=== PATIENT | female | born 2000 | race American Indian/Alaskan Native ===

== ENCOUNTER 2020-05-03 13:11 | Emergency (ER) | payer SELFPAY ==
[2020-05-03 13:25] VITALS: BP 131/89
--- NOTE | 2020-05-03 14:19 | Emergency Department Report ---
ED General Adult HPI - General Chief complaint: Back Pain/Injury Stated complaint: LOWER BACK PAIN/SWOLLEN TONSILS Time Seen by Provider: 05/03/20 13:27 Source: patient Mode of arrival: Wheelchair Limitations: No Limitations - History of Present Illness Initial comments: 19-year-old -[place] female patient presents with complaints of lower back pain intermittently since December of this year. She denies any injuries to her back and rates her pain as a 8/10 in severity. Patient states she was seen at an urgent care 1 week ago for the pain and was prescribed muscle relaxers which initially helped with the pain and then the pain began to worsen again. She denies any loss of bladder/bowel control, numbness/tingling/weakness in her limbs, or difficulty with ambulation/movement of her legs. She denies currently taking any anti-inflammatories for pain. She also denies any history of cancer or urinary symptoms.. Severity scale (0 -10): 10 - Related Data Previous Rx's Medication Instructions Recorded Last Taken Type Docusate Sodium [Colace CAP] 100 mg PO BID PRN #60 capsule 11/02/19 Unknown Rx Naproxen 500 mg PO Q12H PRN #30 tablet 02/26/20 Unknown Rx Ondansetron [Zofran ODT TAB] 4 mg PO Q6HR PRN #15 tab.rapdis 02/26/20 Unknown Rx traMADoL [Ultram] 50 mg PO Q6HR PRN #12 tablet 02/26/20 Unknown Rx Diclofenac Sodium 75 mg PO BID PRN #14 tablet. 05/03/20 Unknown Rx methOCARBAMOL [Robaxin TAB] 1,500 mg PO Q8H PRN #30 tablet 05/03/20 Unknown Rx Allergies Allergy/AdvReac Type Severity Reaction Status Date / Time No Known Allergies Allergy Verified 11/01/19 22:14 ED Review of Systems ROS: Stated complaint: LOWER BACK PAIN/SWOLLEN TONSILS Other details as noted in HPI Constitutional: denies: chills, fever, malaise Respiratory: denies: shortness of breath Cardiovascular: denies: chest pain Gastrointestinal: denies: abdominal pain, nausea, vomiting Genitourinary: denies: dysuria, frequency, hematuria Musculoskeletal: back pain Neurological: denies: numbness, paresthesias Hematological/Lymphatic: denies: swollen glands ED Past Medical Hx - Past Medical History Previous Medical History?: Yes Hx Asthma: Yes - Surgical History Past Surgical History?: No - Social History Smoking Status: Never Smoker Substance Use Type: None - Medications Home Medications: Home Medications Medication Instructions Recorded Confirmed Last Taken Type Docusate Sodium [Colace CAP] 100 mg PO BID PRN #60 capsule 11/02/19 Unknown Rx Naproxen 500 mg PO Q12H PRN #30 tablet 02/26/20 Unknown Rx Ondansetron [Zofran ODT TAB] 4 mg PO Q6HR PRN #15 tab.rapdis 02/26/20 Unknown Rx traMADoL [Ultram] 50 mg PO Q6HR PRN #12 tablet 02/26/20 Unknown Rx Diclofenac Sodium 75 mg PO BID PRN #14 tablet.dr 05/03/20 Unknown Rx methOCARBAMOL [Robaxin TAB] 1,500 mg PO Q8H PRN #30 tablet 05/03/20 Unknown Rx ED Physical Exam - General Limitations: No Limitations General appearance: alert, in no apparent distress, obese - Head Head exam: Present: atraumatic, normocephalic - Eye Eye exam: Absent: scleral icterus - Respiratory Respiratory exam: Absent: respiratory distress - Cardiovascular Cardiovascular Exam: Present: regular rate - GI/Abdominal GI/Abdominal exam: Present: soft. Absent: tenderness - Extremities Exam Extremities exam: Present: normal inspection, full ROM - Back Exam Back exam: Present: paraspinal tenderness (Mild lumbar), vertebral tenderness (Mild lumbar). Absent: full ROM, other (No obvious deformity no) - Neurological Exam Neurological exam: Present: alert, oriented X3 - Psychiatric Psychiatric exam: Present: normal affect, normal mood - Skin Skin exam: Present: warm, dry, intact, normal color. Absent: rash, cyanosis, diaphoretic ED Course Vital Signs 05/03/20 13:22 Temperature 98.2 F Pulse Rate 109 H Respiratory 18 Rate Blood Pressure 131/89 [Right] O2 Sat by Pulse 98 Oximetry ED Medical Decision Making - Radiology Data Radiology results: report reviewed LUMBAR SPINE 3 VIEWS INDICATION: low back pain, no injury COMPARISON: None. FINDINGS: No acute, displaced fracture is seen. Alignment is within normal limits. Disc space height is maintained. No significant degenerative changes. CONCLUSION: 1. No acute findings. - Medical Decision Making 19-year-old -[place] female patient presents with complaints of lower back pain intermittently since December of this year. She denies any injuries to her back and rates her pain as a 8/10 in severity. Patient states she was seen at an urgent care 1 week ago for the pain and was prescribed muscle relaxers which initially helped with the pain and then the pain began to worsen again. She denies any loss of bladder/bowel control, numbness/tingling/weakness in her limbs, or difficulty with ambulation/movement of her legs. She denies currently taking any anti-inflammatories for pain. She also denies any history of cancer or urinary symptoms. No acute abnormalities are noted on x-ray of the lumbar spine. She is neurologically intact on exam. Patient is well-appearing and stable for discharge home. Recommend follow-up with the orthopedic/social services specialist for further evaluation and treatment given chronicity. Strict return precautions were discussed in detail with patient who verbalizes understanding. Critical care attestation.: If time is entered above; I have spent that time in minutes in the direct care of this critically ill patient, excluding procedure time. ED Disposition Clinical Impression: Lumbar back pain Disposition: DC-01 TO HOME OR SELFCARE Is pt being admited?: No Condition: Stable Instructions: What You Need to Know About Chronic Back Pain, Acute Back Pain, Adult Prescriptions: Diclofenac Sodium 75 mg PO BID PRN #14 tablet. PRN Reason: pain methOCARBAMOL [Robaxin TAB] 1,500 mg PO Q8H PRN #30 tablet PRN Reason: Muscle spasm/tightness Referrals: [facility] [Provider Group] - 3-5 Days
--- NOTE | 2020-05-03 14:28 | XRay Report ---
LUMBAR SPINE 3 VIEWS INDICATION: low back pain, no injury COMPARISON: None. FINDINGS: No acute, displaced fracture is seen. Alignment is within normal limits. Disc space height is maintained. No significant degenerative changes. CONCLUSION: 1. No acute findings. Signer Name: Isaac Matamoros MD Signed: 05/03/2020 2:23 PM Workstation Name: [id number]
== END 2020-05-03 15:43 | disposition home or self-care (01) ==
LOC: ED 13:11
DX: M54.5 Low back pain (principal); J45.909 Unspecified asthma, uncomplicated; Z79.899 Other long term (current) drug therapy
CPT/HCPCS: 72100; 99283